=== PATIENT | female | born 2000 | race African-American/Black ===

== ENCOUNTER 2024-03-19 19:23 | Observation (INO) | payer MEDICAID ==
[~2024-03-19] VITALS: Ht 157.5 cm; Wt 59.0 kg
[2024-03-19 20:27] LABS: Urine Bacteria FEW /hpf (None Seen); Urine Blood Negative /uL (Negative); Urine Clarity Turbid (Clear); Urine Color Light-Yellow (Yellow); Urine Mucus FEW (None Seen); Urine Protein, UAD TRACE (Negative); Urine Specific Gravity 1.023 (1.001-1.035); Urine Urobilinogen Normal (Negative); Urine WBC 13 /hpf (0 - 5); Urine pH 6.5 (5.0-9.0)
[2024-03-19] MEDS ORDERED: LACTATED RINGER'S 1,000 ML IV ONE (21:00)
[2024-03-19] MEDS ORDERED: NITR-87 PO (21:22)
[2024-03-19] MEDS: cefTRIAXone 1GM/50ML D5W 50 ML IV SCH (21:32)
[2024-03-19 21:49] LABS: Amphetamine Screen, Urine Neg (NEGATIVE); Barbiturate Scree,Urine Neg (NEGATIVE); Benzodiazephine Screen, Urine Neg (NEGATIVE); Cocaine Screen, Urine Neg (NEGATIVE); Opiate Scree,Urine Neg (NEGATIVE); Phencyclidine Screen, Urine Neg (NEGATIVE)
[2024-03-19 21:50] LABS: Cannabinoid Screen, Urine Pos (NEGATIVE)
== END 2024-03-19 23:38 | disposition home or self-care (01) ==
LOC: LDRP 19:23
PROVIDERS: ADMIT Obstetrics & Gynecology; ATTEND Obstetrics & Gynecology
DX: O23.43 Unspecified infection of urinary tract in pregnancy, third trimester (principal); O26.893 Other specified pregnancy related conditions, third trimester; R10.30 Lower abdominal pain, unspecified; Z3A.29 29 weeks gestation of pregnancy
CPT/HCPCS: 59025; 80307; 81001; 81002; 87086; 94760; 96360; 96361; 96365; G0378